=== PATIENT | male | born 1960 | race Caucasian/White ===

== ENCOUNTER → 2019-05-27 | Outpatient (CLI) | payer BC | LOC: COL.RAD 09:07 | DX: Z87.442 Personal history of urinary calculi (principal) ==

== ENCOUNTER 2021-03-19 08:20 | Day surgery (SDC) | payer BC ==
[~2021-03-19] VITALS: Ht 180.3 cm; Wt 104.2 kg
[2021-03-19] MEDS ORDERED: PRILOSEC10 MG (10:31)
[2021-03-19] MEDS ORDERED: PRIL40 PO (10:32)
[2021-03-19] MEDS ORDERED: MASON NATURAL2000 IU PO (10:33)
[2021-03-19] MEDS ORDERED: FLEXERIL 1010 MG/TAB PO (10:34)
[2021-03-19 10:35] VITALS: BP 139/85; PULSE 62; TEMP 97.4
[2021-03-19 11:15] VITALS: BP 128/78; PULSE 58
[2021-03-19 11:30] VITALS: PULSE 57; TEMP 97.3
--- NOTE | 2021-03-19 11:35 | NUR ---
PT RETURNED FROM THE ENDO PROCEDURE ROOM PER CART. PT IS ALERT AND ORIENTATED, LUNGS CLEAR, HRR, BOWEL SOUNDS PRESENT. IVF PATENT FLOWING INTO THE LEFT WRIST. PT REQUESTS BLUEBERRY MUFFFIIN AND DIET COKE. PT TALKING WITH . WILL CONT TO MONITOR,
[2021-03-19 11:45] VITALS: BP 140/75; PULSE 55
--- NOTE | 2021-03-19 12:14 | NUR ---
PT DENIES NAUSEA OR PAIN. TOLERATING FOOD AND FLUID. TALKING WITH DR ELAINE ABOUT FINDINGS R/T THE PROCEDURE. WILL CONT TO MONITOR.
--- NOTE | 2021-03-19 12:17 | NUR ---
PT TOLERATING FOOD AND FLUIDS. DISMISSAL INSTRUCTIONS PROVIDED, PT VOICES UNDERSTANDING. IV WAS DC'D TO LEFT WRIST. PT TOLERATED WELL. PT WAS TAKEN TO PATIENT ADMISSIONS FOR DISMISSAL, DRIVING FAMILY VEHICLE.
== END 2021-03-19 12:00 | disposition home or self-care (01) ==
LOC: SDCO 08:20
DX: K29.80 Duodenitis without bleeding (principal); K26.3 Acute duodenal ulcer without hemorrhage or perforation; K31.89 Other diseases of stomach and duodenum; K92.1 Melena; D50.0 Iron deficiency anemia secondary to blood loss (chronic); M47.817 Spondylosis without myelopathy or radiculopathy, lumbosacral region; Z90.89 Acquired absence of other organs; Z20.822 Contact with and (suspected) exposure to COVID-19; Z98.52 Vasectomy status; Z79.899 Other long term (current) drug therapy; Z83.3 Family history of diabetes mellitus; Z80.0 Family history of malignant neoplasm of digestive organs
CPT/HCPCS: J2704; J7030

== ENCOUNTER → 2024-03-14 | Outpatient (CLI) | payer BC ==
--- NOTE | 2024-03-11 09:01 | NUR ---
INSTRUCTED TO STAY OFF OF ASPIRIN FOR 24 HOURS PER PROCEDURE
[~2024-03-14] VITALS: Ht 180.3 cm; Wt 107.8 kg
[2024-03-14] VITALS (11 sets, daily range): BP systolic 140–159; BP diastolic 85–99; PULSE 55–66; TEMP 97.4
[~2024-03-14] MED LIST: ASPIRIN 81M81 MG/TA2 PO; FLEXERIL 1010 MG/TAB PO; MASON NATURAL2000 IU PO; Midazolam 2 MG/2 ML VIAL IV SCH; OSTEO-BI-FLEX 21 TAB PO; PRIL40 PO; PRILOSEC10 MG; fentaNYL 50 MCG/ML 2 ML VIAL IV SCH
[2024-03-14 07:48] LABS: BASO # 0.1 K/mm3 (0.0-0.2); BASO % 1.1 % (0.0-2.0); EOS # 0.1 K/mm3 (0.0-0.7); EOS % 1.5 % (0.0-4.0); GRAN # 7.1 K/mm3 (1.4-6.5); GRAN % 77.8 % (42.2-75.2); LYMPH % 10.7 % (20.0-51.0); MEAN CELL VOLUME 90 fl (80.0-100.0); MEAN CORPUSCULAR HGB CONC 34 g/dl (33.0-37.0); MEAN PLATELET VOLUME 10.3 fl (7.4-10.4); MONO # 0.7 K/mm3 (0.1-0.6); MONO % 8.1 % (1.7-9.3); PLATELET COUNT 375 K/mm3 (130-400); RED BLOOD COUNT 6.09 M/mm3 (4.20-5.60); REDCELL DISTRIBUTION WIDTH-CV 16.8 % (11.5-14.5)
[2024-03-14 07:50] LABS: HEMATOCRIT 54.6 % (42.0-52.0); HEMOGLOBIN 18.6 g/dl (13.5-18.0); MEAN CORPUSCULAR HEMOGLOBIN 31 pg (27-31)
--- NOTE | 2024-03-14 10:16 | NUR ---
PATIENT ESCORTED OUT TO HIS RIDE AT 0940. IV REMOVED AT 0935 WITHOUT ANY ISSUES. PATIENT GOT DRESSED. DRESSING REMAINED CLEAN, DRY, AND INTACT AND PATIENT CONTINUED TO DENY BEING IN PAIN. PATIENT WAS ESCORTED TO THIS RIDE VIA WHEELCHAIR AND WAS ABLE TO GET INTO THE FRONT PASSENGER SEAT WITHOUT ANY ISSUES OR ASSISTANCE. ALL NEEDS MET.
--- NOTE | 2024-03-14 10:32 | NUR ---
SPECIMEN WAS COLLECTED AT 0848. PATIENT TOLERATED THIS WELL. VITALS REMAINED STABLE AFTER SAMPLE TAKEN.
== END ==
LOC: COL.RAD 07:00
PROVIDERS: Internal Medicine
DX: D45 Polycythemia vera (principal)
CPT/HCPCS: J2250; J3010